=== PATIENT | female | born 1970 | race Caucasian/White ===

== ENCOUNTER 2017-12-28 08:54 | Emergency (ER) | payer OTHER ==
[~2017-12-28] VITALS: Ht 170.2 cm; Wt 90.7 kg
[~2017-12-28 08:54] MED LIST: ACID CONTROL75 MG PO; COZAAR100 MG PO; HYZAAR 50/12.51 TAB PO; NORVASC5 MG PO
== END 2017-12-28 09:56 | disposition home or self-care (01) ==
LOC: OB/ER 08:54 → ER 08:57
DX: B76.9 Hookworm disease, unspecified (principal)